=== PATIENT | female | born 2000 | race Two or more races ===

== ENCOUNTER 2018-04-17 15:54 | Emergency (ER) | payer OTHER ==
[~2018-04-17] VITALS: Ht 157.5 cm; Wt 56.2 kg
--- NOTE | 2018-04-17 16:31 | NUR ---
NO ANSWER AT THIS TIME. X1
[2018-04-17 16:41] VITALS: BP 104/75
[2018-04-17 18:01] LABS: CULTURE INDICATED? NO; MICROSCOPIC NOT IND
[2018-04-17 18:50] LABS: BASOPHILS # (AUTO) 0.01 x10^3/uL (0-0.3); BASOPHILS % (AUTO) 0 % (0-1); EOSINOPHILS # (AUTO) 0.12 x10^3/uL (0-0.8); EOSINOPHILS % (AUTO) 2 % (1-7); LYMPHOCYTES # (AUTO) 3.91 x10^3/uL (1-6.1); LYMPHOCYTES % (AUTO) 50 % (22-44); MD NO; MEAN CORPUSCULAR HEMOGLOBIN 30.7 pg (27.0-34.8); MEAN CORPUSCULAR HGB CONC 34.4 g/dL (32.4-35.8); MEAN CORPUSCULAR VOLUME 89.3 fL (80-100); MEAN PLATELET VOLUME 8.9 fL (7.4-10.4); MONOCYTES % (AUTO) 7 % (2-9); NEUTROPHILS # (AUTO) 3.23 x10^3/uL (1.8-8.0); NEUTROPHILS % (AUTO) 42 % (42-75); PLATELET COUNT 339 x10^3/uL (130-400); RED BLOOD COUNT 4.93 x10^6/uL (3.82-5.3); RED CELL DISTRIBUTION WIDTH 12.3 % (9.6-15.2)
[2018-04-17 19:03] LABS: ALBUMIN 4.2 g/dL (3.4-5.0); ANION GAP 6 mmol/L (5-15); CALCIUM 9.4 mg/dL (8.5-10.1); CHLORIDE 113 mmol/L (98-107)
[2018-04-17 19:10] LABS: ALANINE AMINOTRANSFERASE 20 U/L (12-78); ALKALINE PHOSPHATASE 90 U/L (45-117); BILIRUBIN,TOTAL 0.9 mg/dL (0.2-1.0); CREATININE 0.98 mg/dL (0.55-1.02); TOTAL PROTEIN 8.4 g/dL (6.4-8.2)
--- NOTE | 2018-04-17 19:21 | NUR ---
pt called to room from lobby
--- NOTE | 2018-04-17 19:38 | NUR ---
UA COLLECTED AND SENT, MD AT BEDSIDE
--- NOTE | 2018-04-17 20:33 | NUR ---
Patient/Caregiver given discharge instructions and they have confirmed that they understand the instructions. Patient ambulatory with steady gait.
== END 2018-04-17 20:36 | disposition home or self-care (01) ==
LOC: ED 20:05
DX: K80.70 Calculus of gallbladder and bile duct without cholecystitis without obstruction (principal)
CPT/HCPCS: 36415; 76700; 80053; 81003; 83690; 84703; 85025; 99284